=== PATIENT | male | born 1965 | race Caucasian/White ===

== ENCOUNTER 2018-02-21 06:44 | Emergency (ER) | payer OTHER ==
[~2018-02-21] VITALS: Ht 152.4 cm; Wt 55.0 kg
[2018-02-21 06:45] VITALS: BP 135/82
== END 2018-02-21 09:31 | disposition home or self-care (01) ==
LOC: ED 08:10
DX: H54.61 Unqualified visual loss, right eye, normal vision left eye (principal); Z77.098 Contact with and (suspected) exposure to other hazardous, chiefly nonmedicinal, chemicals
CPT/HCPCS: 99281